=== PATIENT | female | born 1985 | race Asian ===

== ENCOUNTER 2022-12-12 23:28 | Emergency (ER) | payer MEDICAID ==
[~2022-12-12] VITALS: Ht 149.9 cm; Wt 60.9 kg
[2022-12-12 23:30] VITALS: BP 104/58; TEMP 98.6; O2SAT 98
[2022-12-13 00:07] LABS: HEMATOCRIT 38.8 % (36.0-47.0); HEMOGLOBIN 12.9 g/dl (12.0-15.5); MEAN CORPUSCULAR HGB CONC 33.2 g/dl (32.0-36.5); MEAN CORPUSCULAR VOLUME 93.3 fl (80.0-96.0); PLATELET COUNT, AUTOMATED 268 10^3/uL (150-450); RED BLOOD COUNT 4.16 10^6/uL (4.00-5.40); WHITE BLOOD COUNT 8.3 10^3/uL (4.0-10.0)
[2022-12-13 00:27] LABS: BLOOD UREA NITROGEN 12 MG/DL (9-23); CALCIUM LEVEL 8.9 MG/DL (8.5-10.1); CARBON DIOXIDE LEVEL 26 MMOL/L (20-31); CHLORIDE LEVEL 107 MMOL/L (98-107); CREATININE FOR GFR 0.67 MG/DL (0.55-1.30); GLOMERULAR FILTRATION RATE > 60.0 (>60); GLUCOSE, FASTING 93 MG/DL (60-100); POTASSIUM SERUM 3.8 MMOL/L (3.5-5.1); SODIUM LEVEL 141 MMOL/L (136-145)
[2022-12-13 00:41] LABS: HCG, SERUM QUANTITATIVE 8633.1 MIU/ML (<4.2)
[2022-12-13] MEDS ORDERED: ONDANSETRON 4MG 2ML VIAL IV ONE (00:55)
[2022-12-13] MEDS ORDERED: ACETAMINOPHEN 500 MG TAB PO ONE (00:55)
[2022-12-13 00:58] LABS: ANISOCYTOSIS 1+; ATYPICAL LYMPH 8 % (0-5); BASOPHILS 1 % (0-1); EOSINOPHILS 3 % (0-3); LYMPHOCYTES 27 % (16-44); MONOCYTES 6 % (0-5); NEUTROPHILS 54 % (28-66); PLATELET ESTIMATE NORMAL (NORMAL); SMUDGE CELLS 1+
[2022-12-13] MEDS ORDERED: ONDANSETRON 4MG ORAL DISINTEGRATING TAB PO ONE (01:00)
[2022-12-13] MEDS ORDERED: COLA100C5 PO (02:11)
[2022-12-13] MEDS ORDERED: PNV1TABL16 PO (02:11)
[2022-12-13] MEDS ORDERED: CETI10CA2 PO (02:11)
[2022-12-13] MEDS ORDERED: CEPH500C PO (03:04)
[2022-12-13 06:05] LABS: GC DNA AMPLIFICATION INVALID (NEGATIVE)
== END 2022-12-13 03:41 | disposition home or self-care (01) ==
LOC: M ED 23:28
DX: O23.91 Unspecified genitourinary tract infection in pregnancy, first trimester (principal); R82.71 Bacteriuria; Z3A.01 Less than 8 weeks gestation of pregnancy; Z79.899 Other long term (current) drug therapy